=== PATIENT | female | born 1985 | race Caucasian/White ===

== ENCOUNTER → 2023-06-04 | Outpatient (CLI) | payer MEDICAID, SELFPAY ==
--- NOTE | 2023-06-04 14:20 | ASPS_PTH ---
PATIENT: REMEDIOS MIRZA LOC: [facility] U#:[id number] AGE/SX: 37/F ROOM: RE06/04/[address]: Dr. Roger Chance MD : [id number] BED: DIS: 06/04/2023 SPEC #: [id number] RECD: 06/04/23 15:54 STATUS: JEFF JUDDMiriam #: [id number] AMARILYS: 06/04/23 14:[address]: Roger Chance DEPT: CYTOLOGY RECD BY: Ena Lnidsey ENTERED: 06/05/23 09:40 SP TYPE: ASPIRATION OTHR DR: TORY Mckinney Tissues: Thyroid gland, NOS Procedures: Special Stain Group II Cytology Other HEADER OPERATION: Right thyroid fine needle aspiration PRE-OP DIAGNOSIS: Right thyroid nodule TISSUE SUBMITTED: Right thyroid nodule x6 slides DIAGNOSIS CYTOLOGY Right thyroid nodule, fine needle aspiration (smears): Consistent with chronic lymphocytic thyroiditis, Gentry Category II. Adequate for evaluation. See comment. SJ:steph 06/05/2023 COMMENT Correlation with clinical, radiologic findings and appropriate follow up are necessary. The Gentry System for thyroid diagnostic categorization was used in the evaluation of this case. CYTOLOGY STUDY Slides are reviewed. CYTOLOGY GROSS Received are six smears labeled with the patient's name and designated per the requisition as right thyroid nodule. Submitted for staining. / steph 06/05/2023 TC:5 CPT: 18199
== END | disposition home or self-care (01) ==
PROVIDERS: PCP Physician Assistant; Referring Provider Surgery; Visit Provider Surgery
DX: E04.1 Nontoxic single thyroid nodule (principal)
CPT/HCPCS: 88161; 88313

== ENCOUNTER 2023-10-27 10:43 | Outpatient (RCR) | payer MEDICAID, SELFPAY | END 2023-11-16 23:59 | LOC: NS 10:43 | PROVIDERS: PCP Physician Assistant; Referring Provider Physician Assistant; Visit Provider Physician Assistant | DX: Z71.3 Dietary counseling and surveillance (principal); E66.01 Morbid (severe) obesity due to excess calories | CPT/HCPCS: 97802 ==

== ENCOUNTER 2023-11-25 09:36 | Outpatient (RCR) | payer MEDICAID, SELFPAY | END 2023-12-17 23:59 | LOC: NS 09:36 | PROVIDERS: PCP Physician Assistant; Referring Provider Physician Assistant; Visit Provider Physician Assistant | DX: Z71.3 Dietary counseling and surveillance (principal); E66.01 Morbid (severe) obesity due to excess calories | CPT/HCPCS: 97803 ==

== ENCOUNTER 2023-12-23 09:38 | Outpatient (RCR) | payer MEDICAID, SELFPAY | END 2024-01-15 23:59 | LOC: NS 09:38 | PROVIDERS: PCP Physician Assistant; Referring Provider Physician Assistant; Visit Provider Physician Assistant | DX: Z71.3 Dietary counseling and surveillance (principal); E66.01 Morbid (severe) obesity due to excess calories; Z68.42 Body mass index [BMI] 45.0-49.9, adult | CPT/HCPCS: 97803 ==

== ENCOUNTER 2024-01-20 09:35 | Outpatient (RCR) | payer MEDICAID, SELFPAY | END 2024-02-15 23:59 | LOC: NS 09:35 | PROVIDERS: PCP Physician Assistant; Referring Provider Physician Assistant; Visit Provider Physician Assistant | DX: Z71.3 Dietary counseling and surveillance (principal); E66.01 Morbid (severe) obesity due to excess calories; Z68.42 Body mass index [BMI] 45.0-49.9, adult | CPT/HCPCS: 97803 ==